=== PATIENT | male | born 1950 | race Caucasian/White ===

== ENCOUNTER 2019-04-02 09:22 | Day surgery (SDC) | payer OTHER | END 2019-04-02 17:40 | disposition home or self-care (01) | LOC: AMB-ENDOS 09:22 → CIR.AMB 11:00 → AMB-ENDOS 17:40 | DX: D12.0 Benign neoplasm of cecum (principal); D12.3 Benign neoplasm of transverse colon; K64.1 Second degree hemorrhoids ==